=== PATIENT | female | born 1940 | race Caucasian/White ===

== ENCOUNTER → 2023-04-16 11:32 | Outpatient (BNVA) | payer MEDICARE, SELFPAY | PROVIDERS: PCP Nurse Practitioner Family; Visit Provider Internal Medicine | DX: M54.81 Occipital neuralgia (principal) | CPT/HCPCS: 99202 ==

== ENCOUNTER 2023-05-29 10:34 | Outpatient (REF) | payer MEDICARE, SELFPAY ==
--- NOTE | ~2023-05-29 | MR_ITS ---
EXAMINATION: MR CERVICAL SPINE WITHOUT CONTRAST CLINICAL INFORMATION: Cervical spinal canal stenosis, evaluate for anomalous left vertebral artery course COMPARISON: None TECHNIQUE: MRI of the cervical spine was obtained using routine sequences without contrast. FINDINGS: There is levocurvature at the cervicothoracic junction. Normal cervical lordosis. Degenerative changes across the anterior atlantodental interval. The craniocervical junction is intact. Slight retrolisthesis at C5-C6 and slight anterolisthesis at C7-T1. Vertebral body heights are normal without acute compression fracture. No suspicious osseous lesion. Disc desiccation with severe C5-C6 and mild C4-C5 disc height loss. Opposing endplate Schmorl's nodes with type I Modic endplate change at C5-C6. Several perineural root sleeve cysts. There are multilevel degenerative changes with level by level detail as follows: C2-C3: Bilateral facet arthrosis without spinal canal or neural foraminal stenosis. C3-C4: Broad-based paracentral disc protrusion and mild bilateral facet arthrosis without spinal canal or neural foraminal narrowing. C4-C5: Right greater than left uncovertebral joint hypertrophy and bilateral facet arthrosis, severe on the right. No significant spinal canal stenosis, noting suspected impingement upon the right C5 nerve root. Severe right without significant left neural foraminal narrowing. C5-C6: Disc osteophyte complex and bilateral uncovertebral joint hypertrophy with greater than left facet arthrosis. Mild to moderate spinal canal stenosis and severe right without left neural foraminal narrowing. C6-C7: Right greater than left facet arthrosis. No spinal canal or neural foraminal stenosis. C7-T1: Uncovered posterior disc material. Osseous fusion across hypertrophic right facet arthrosis. No spinal canal or left neural foraminal narrowing. Moderate to severe right neural foraminal stenosis with impingement upon the exiting right C8 nerve root. The cervical spinal cord is normal in signal and morphology. No epidural fluid collection, mass, or hematoma. No significant abnormalities of the paraspinal musculature. The flow voids of the major cervical vessels are maintained, with normal course of the imaged cervical left vertebral artery, as clinically queried. Mild bilateral intraglandular submandibular sialectasis. The visualized intracranial structures are normal. Heterogeneous multinodular thyroid gland with heterogeneous T1 and T2 hyperintense nodules in the left lobe measuring 2.3 cm and 2.2 cm, for which further evaluation with thyroid ultrasound is advised. MR/MR cervical spine wo con IMPRESSION: 1. Multilevel cervical spondylosis as described above with mild to moderate spinal canal stenosis at C5-C6. No cord compression or cord signal abnormality. Right-sided uncovertebral joint hypertrophy at C4-C5 impinges upon the right C5 nerve root. Multilevel neural foraminal stenosis, worst and severe on the right at C4-C5 and C5-C6. Moderate to severe right C7-T1 neural foraminal stenosis with impingement upon the exiting right C8 nerve root. 2. Multinodular thyroid gland with heterogeneous nodules in the left lobe measuring up to 2.3 cm, for which further evaluation with thyroid ultrasound is advised. 3. The flow voids of the major cervical vessels are maintained, with normal course of the imaged cervical left vertebral artery, as clinically queried.
== END 2023-05-29 10:35 | disposition home or self-care (01) ==
LOC: HO.MRI 10:34
PROVIDERS: PCP Nurse Practitioner Family; Visit Provider Internal Medicine
DX: M48.02 Spinal stenosis, cervical region (principal)
CPT/HCPCS: 72141

== ENCOUNTER 2023-06-06 09:22 | Day surgery (SDC) | payer MEDICARE, SELFPAY ==
--- NOTE | ~2023-06-06 | FL_ITS ---
EXAMINATION: XR FLUOROSCOPY WITH IMAGES CLINICAL INFORMATION: Third occipital nerve SPRINT, left. COMPARISON: Cervical spine MRI May 2023 TECHNIQUE: Fluoroscopy Supervised By: Dr. Neo Fernandez. Fluoroscopy Time: 0.6 minutes. Cumulative Dose: 4.52 mGy. DAP: 0.450 Gycm2. Images: 5. FINDINGS: Initial images demonstrates posterior needle projecting over the posterior elements at C2-C3. Later images demonstrate a left-sided probe projecting over the proximal left lateral cervical spine. Increased density projecting over the cervical spine at the C2-C3 disc space level on the lateral views, uncertain etiology. FL/FL guidance in OR IMPRESSION: Fluoroscopy guidance for a management procedure.
[2023-06-06 09:46] VITALS: BMI 25.2
[2023-06-06 10:47] VITALS: BP 151/73; PULSE 82; RESP 16; TEMP 36.4; O2SAT 97
--- NOTE | 2023-06-06 11:59 | MHC.SHP ---
Pre-Procedural Eval Section A Date of Service: 06/06/23 The patient is an INPATIENT: No Changes since office visit: Yes Patient answered all questions The History & Physical has been completed within 30 days and I have reviewed it.: No Section B Chief Complaint: Occipital neuralgia Relevant Family History (Specify if Yes): Yes Relevant Social History: Other (specify) Present Medications: see Short Stay Collaborative assessment Medical History: No relevant PMH History of Previous Operations: No relevant previous surgery Allergies: Allergies Allergy/AdvReac Type Severity Reaction Status Date / Time codeine AdvReac Severe Nausea Verified 04/16/23 11:38 Review of Systems Sugical H&P ROS: Negative: Constitution, Cardiovascular and Respiratory Exam Surgical H&P Exam: Normal: HEENT, Normal: Heart and Normal: Lungs Plan Diagnosis/Plan: Unchanged I have reviewed the history and physical and performed a pertinent physical examination on my patient. No changes have occurred unless specified. Proceed with left 3rd occipital nerve temporary stimulator placement. Time Spent With Patient Time: Total time managing care of this patient today ____ minutes.
[2023-06-06 12:00] VITALS: BP 151/68; PULSE 80; RESP 20; TEMP 36.6; O2SAT 97
--- NOTE | 2023-06-06 12:03 | PM.OP ---
Brief Operative Note Date of Service: 06/06/23 Pre-op diagnosis: Occipital neuralgia Post-op diagnosis: same Procedure: Temporary 3rd occipital nerve stimulator placement Implants: Sprint temporary PNS system Surgeon: Neo Fernandez MD Anesthesia: local Was an Area Forester used for this Procedure?: No Estimated blood loss (mL): 3 Pathology: none sent Condition: stable Disposition: same day
--- NOTE | 2023-06-06 12:06 | W.PM.OPN ---
Operative Note Operative Note Date of Service: 06/06/23 Narrative: Cervical Medial Branch Nerve Stimulation Lead Placement, SPR (Sprint) System, Left C2/3, Third Occipital Nerve ? After the risks, benefits and alternatives were discussed with the patient and informed consent was obtained, patient was placed in the prone position and padded to foster comfort. The skin overlying the cervical spine was prepped and draped in sterile fashion. Fluoroscopy was used to identify the spinous process and lamina over the C2/3 articular pillar. After identifying and marking the intended target along the course of the medial branch nerve, the skin around the planned entry point and the subcutaneous tissues were injected with lidocaine 1%. An introducer needle and stimulating probe were assembled, inserted and advanced along the intended course of the medial branch nerve, taking care to maintain the proper depth of insertion as the introducer was advanced under fluoroscopic guidance. The introducer needle was delivered to a location in proximity to the nerve. Multiple stimulation parameters were used to deliver stimulation to the target medial branch nerve in concert with stimulating at multiple positions around the nerve. Nerve target acquisition was confirmed noting generation of paresthesias in the paravertebral regions corresponding to the level being stimulated. Various electrical parameter combinations were tested, and the lead location was adjusted (physically relocated) until the patient indicated paresthesia/muscle tension overlapping the distribution of the patient?s typical region of pain, including neck and occipital region. The stimulating probe was removed from the introducer and a percutaneous lead was guided through the needle and delivered to a location in similar proximity to the nerve. Final location was verified with electrical stimulation and documented with fluoroscopy. Upon the first placement, the lead was displaced during introducer removal. So the procedure was repeated as before, and appropriate lead deployment was re-attempted successfully. The exposed end of the percutaneous lead was attached to an external stimulator unit. Various electrical parameter combinations were again tested until the patient indicated paresthesia or muscle tension overlapping the distribution of the patient?s typical region of pain. Fluoroscopy was used to document the location of the percutaneous lead in the deployed position. After confirming that lead impedance was in the normal range, the external unit was detached, the needle was removed, and the lead was anchored at the skin. The lead was threaded into the connector block and electrical continuity and desired patient response was confirmed. The connector block was attached to the external stimulator unit. The site was covered with a sterile occlusive pressure dressing. The patient was observed for stability of vital signs and comfort. Patient was dischared in stable condition.
== END 2023-06-06 12:30 | disposition home or self-care (01) ==
PROVIDERS: PCP Nurse Practitioner Family; Visit Provider Internal Medicine
PROC: (CPT 64555; principal; 2023-06-06 11:00)
DX: M54.81 Occipital neuralgia (principal); M54.2 Cervicalgia; M48.02 Spinal stenosis, cervical region; G89.29 Other chronic pain; R51.9 Headache, unspecified; I10 Essential (primary) hypertension; H81.13 Benign paroxysmal vertigo, bilateral; Z88.8 Allergy status to other drugs, medicaments and biological substances; Z79.1 Long term (current) use of non-steroidal anti-inflammatories (NSAID); Z79.899 Other long term (current) drug therapy
CPT/HCPCS: 64555; C1778

== ENCOUNTER → 2023-06-06 09:22 | Outpatient (BNV) | payer MEDICARE, SELFPAY | PROVIDERS: PCP Nurse Practitioner Family; Visit Provider Internal Medicine | DX: M54.81 Occipital neuralgia (principal) | CPT/HCPCS: 64555 ==

== ENCOUNTER 2023-06-15 08:26 | Outpatient (AMB) | payer MEDICARE, SELFPAY ==
[2023-06-15 08:33] VITALS: BP 136/66; RESP 14; O2SAT 94; BMI 25.2
--- NOTE | 2023-06-15 08:33 | A.OFFVIS_ITS ---
Intake Vital Signs 06/15/23 08:33 Height 5 ft 3 in Weight 142 lb BMI 25.2 BP 136/66 Blood Pressure Location Lt brachial Respiration 14 Pulse Oximetry (%) 94 Oxygen Delivery Method Room Air Intake Visit Reasons: s/p Left 3rd occipital nerve Sprint Allergies codeine Adverse Reaction (Severe, Verified 06/15/23 08:34) Nausea HPI s/p Left 3rd occipital nerve Sprint HPI Details 82-year-old female presenting today for a status post left 3rd occipital nerve sprint. The patient no significant relief following the procedure yet. She has been experiencing occasional mild right-sided headaches that started after the procedure. Her device setting is currently functional at 49. She endorses an appropriate paresthesia sensation from the device appropriately in the upper neck and occipital region. Past Procedures: 06/06/23: Cervical Medial Branch Nerve Stimulation Lead Placement, SPR (Sprint) System, Left C2/3, Third Occipital Nerve: No relief 1 week out, therapy ongoing [facility], [facility] Medical History (Updated 04/16/23 @ 14:04 by Neo Fernandez MD) Benign paroxysmal vertigo, bilateral Chronic left-sided headache Hypertension Occipital neuralgia Review of Systems Const All systems reviewed & are unremarkable except as noted in HPI and below Physical Exam Vital Signs: Last Vital Signs Resp 14 06/15/23 08:33 BP 136/66 06/15/23 08:33 Pulse Ox 94 06/15/23 08:33 Oxygen Delivery Method Room Air 06/15/23 08:33 BMI result Body Mass Index 25.2 General: Appears afebrile. Alert and oriented. Mood and affect appropriate. Follows and participates in conversation appropriately. Respiratory effort is unlabored. Able to transition from sit to stand unassisted. Ambulates with bilaterally normal heel strike and toe off. Site is clean, dry and intact. Results Reviewed Results Reviewed: 05/29/23: MR CERVICAL SPINE WITHOUT CONTRAST FINDINGS: There is levocurvature at the cervicothoracic junction. Normal cervical lordosis. Degenerative changes across the anterior atlantodental interval. The craniocervical junction is intact. Slight retrolisthesis at C5-C6 and slight anterolisthesis at C7-T1. Vertebral body heights are normal without acute compression fracture. No suspicious osseous lesion. Disc desiccation with severe C5-C6 and mild C4-C5 disc height loss. Opposing endplate Schmorl's nodes with type I Modic endplate change at C5-C6. Several perineural root sleeve cysts. There aremultilevel degenerative changes with level by level detail as follows: C2-C3: Bilateral facet arthrosis without spinal canal or neural foraminal stenosis. C3-C4: Broad-based paracentral disc protrusion and mild bilateral facet arthrosis without spinal canal or neural foraminal narrowing. C4-C5: Right greater than left uncovertebral joint hypertrophy and bilateral facet arthrosis, severe on the right. No significant spinal canal stenosis, noting suspected impingement upon the right C5 nerve root. Severe right without significant left neural foraminal narrowing. C5-C6: Disc osteophyte complex and bilateral uncovertebral joint hypertrophy with greater than left facet arthrosis. Mild to moderate spinal canal stenosis and severe right without left neural foraminal narrowing. C6-C7: Right greater than left facet arthrosis. No spinal canal or neural foraminal stenosis. C7-T1: Uncovered posterior disc material. Osseous fusion across hypertrophic right facet arthrosis. No spinal canal or left neural foraminal narrowing. Moderate to severe right neural foraminal stenosis with impingement upon the exiting right C8 nerve root. The cervical spinal cord is normal in signal and morphology. No epidural fluid collection, mass, or hematoma. No significant abnormalities of the paraspinal musculature. The flow voids of the major cervical vessels are maintained, with normal course of the imaged cervical left vertebral artery, as clinically queried. Mild bilateral intraglandular submandibular sialectasis. The visualized intracranial structures are normal. Heterogeneous multinodular thyroid gland with heterogeneous T1 and T2 hyperintense nodules in the left lobe measuring 2.3 cm and 2.2 cm, for which further evaluation with thyroid ultrasound is advised. IMPRESSION: 1. Multilevel cervical spondylosis as described above with mild to moderate spinal canal stenosis at C5-C6. No cord compression or cord signal abnormality. Right-sided uncovertebral joint hypertrophy at C4-C5 impinges upon the right C5 nerve root. Multilevel neural foraminal stenosis, worst and severe on the right at C4-C5 and C5-C6. Moderate to severe right C7-T1 neural foraminal stenosis with impingement upon the exiting right C8 nerve root. 2. Multinodular thyroid gland with heterogeneous nodules in the left lobe measuring up to 2.3 cm, for which further evaluation with thyroid ultrasound is advised. 3. The flow voids of the major cervical vessels are maintained, with normal course of the imaged cervical left vertebral artery, as clinically queried. Assessment & Plan Assessment & Plan (1) Occipital neuralgia: Code(s): M54.81 - Occipital neuralgia Plan The patient will follow-up in seven weeks for removal of Sprint. Dressing changed in clinic today. Patient expressed good understanding of how to operate the device with appropriate paresthesia coverage. Scribed for Dr. Fernandez by Jeff Basilio, bio medical technician, on 06/15/2023. I, Dr. Fernandez, have personally reviewed and agree with the information entered by the scribe. Coding Level of Care Code Est Pt Level 3 (86175) Diagnoses Occipital neuralgia M54.81
== END 2023-06-15 08:51 | disposition home or self-care (01) ==
PROVIDERS: PCP Nurse Practitioner Family; Visit Provider Internal Medicine
DX: M54.81 Occipital neuralgia (principal)
CPT/HCPCS: 99024

== ENCOUNTER → 2023-06-15 08:26 | Outpatient (BNVA) | payer MEDICARE, SELFPAY | PROVIDERS: PCP Nurse Practitioner Family; Visit Provider Internal Medicine | DX: M54.81 Occipital neuralgia (principal) | CPT/HCPCS: 99212 ==

== ENCOUNTER 2023-08-03 08:41 | Outpatient (AMB) | payer MEDICARE, SELFPAY ==
--- NOTE | 2023-08-03 08:45 | A.OFFVIS_ITS ---
Intake Vital Signs 08/03/23 08:47 Height 5 ft 3 in Weight 150 lb BMI 26.6 BP 186/80 H Blood Pressure Location Lt brachial Position Sitting Respiration 14 Pulse 88 Pulse Source Pulse Oximeter Pulse Oximetry (%) 99 Oxygen Delivery Method Room Air Intake Visit Reasons: Sprint removal Allergies codeine Adverse Reaction (Severe, Verified 08/03/23 08:47) Nausea Medication List - Last Reconciled 08/03/23 by Danyelle Bosch LPN acetaminophen ER (Tylenol Arthritis Pain) 650 mg PO Q12H atorvastatin 40 mg PO DAILY calcium carb and citrate-vitD3 600 mg-12.5 mcg (500 unit) ER tabs PO cholecalciferol (vitamin D3) 50 mcg PO DAILY cyanocobalamin (vitamin B-12) 500 mcg PO DAILY geriatric [id number] 1 tab PO DAILY ibuprofen (Advil) 600 mg PO Q8H PRN [id number] 333-1.7 mg (Airborne (ascorbate sodium)) tabs PO naproxen sodium (Aleve) 220 mg PO BID PRN omeprazole 40 mg PO DAILY pseudoephedrine HCl (Sudafed) 60 mg PO Q4-6H PRN HPI Sprint removal HPI Details 83-year-old female who presents today to the office for a removal of sprint. The patient states that she had no relief from the cervical MB nerve stimulator. She has no neck pain with sideways movements or paresthesia, numbness, or pain in her arms. She has a history of arthritis. She had an occipital nerve block with Depo-Medrol in 2010 with good relief for 2?3 days. She states that a doctor from [place] recommended trying RFA or Botox therapy, but her neurologist deferred the suggestion. The patient is amenable to receive a nerve block today in the office. She is hesitant to proceed with a trial of in implantable nerve stimulation device for occipital neuralgia at this time, but will think about it and let us know. Past Procedures: 06/06/23: Cervical Medial Branch Nerve S timulation Lead Placement, SPR (Sprint) System, Left C2/3, Third Occipital Nerve: No relief. [facility] Medical History (Updated 04/16/23 @ 14:04 by Neo Fernandez MD) Chronic left-sided headache Occipital neuralgia Hypertension Benign paroxysmal vertigo, bilateral Review of Systems Const All systems reviewed & are unremarkable except as noted in HPI and below Physical Exam Vital Signs: Last Vital Signs Pulse 88 08/03/23 08:47 Resp 14 08/03/23 08:47 BP 186/80 H 08/03/23 08:47 Pulse Ox 99 08/03/23 08:47 Oxygen Delivery Method Room Air 08/03/23 08:47 BMI result Body Mass Index 26.6 General: Appears afebrile. Alert and oriented. Mood and affect appropriate. Follows and participates in conversation appropriately. Respiratory effort is unlabored. Able to transition from sit to stand unassisted. Ambulates with bilaterally normal heel strike and toe off. The site was clean, dry, and intact. Office Procedures Nerve Block Details: Left Greater and Lesser Occipital Nerve Block. A physical exam was used to isolate the location of the targeted nerves. These injection sites were prepped with alcohol. Using a sterile technique, a 25 gauge 1.5-inch needle was introduced into each overlying nerve. A total of 3cc equal mix, 4% Lidocaine and 0.5% bupivacaine, was injected around the left greater and lesser occipital nerves in a fan-like motion. Aspirations were negative for blood, CSF, and air prior to injection at all sites. The needle was removed, the skin cleansed and a sterile bandage was applied where needed. The patient tolerated the procedure well and no complications were encountered. Following the procedure the patient's vital signs were stable. He reported resolution of his preprocedure headache. The patient was discharged home in good condition with post-procedural instructions. Time Out: Immediately prior to the procedure, the following was verbally confirmed that there is a signed consent form and that the correct patient, planned procedure, site and side are consistent with documentation and that necessary equipment and/or blood products are available prior to the start of the case. Complications: none EBL: None. CPT: 45901-Mepfncf Occipital (left) 06504 - Lesser Occipital (left ) Procedure code (CPT) selection complete Results Reviewed Results Reviewed: 05/29/23: MR CERVICAL SPINE WITHOUT CONTRAST FINDINGS: There is levocurvature at the cervicothoracic junction. Normal cervical lordosis. Degenerative changes across the anterior atlantodental interval. The craniocervical junction is intact. Slight retrolisthesis at C5-C6 and slight anterolisthesis at C7-T1. Vertebral body heights are normal without acute compression fracture. No suspicious osseous lesion. Disc desiccation with severe C5-C6 and mild C4-C5 disc height loss. Opposing endplate Schmorl's nodes with type I Modic endplate change at C5-C6. Several perineural root sleeve cysts. There are multilevel degenerative changes with level by level detail as follows: C2-C3: Bilateral facet arthrosis without spinal canal or neural foraminal stenosis. C3-C4: Broad-based paracentral disc protrusion and mild bilateral facet arthrosis without spinal canal or neural foraminal narrowing. C4-C5: Right greater than left uncovertebral joint hypertrophy and bilateral facet arthrosis, severe on the right. No significant spinal canal stenosis, noting suspected impingement upon the right C5 nerve root. Severe right without significant left neural foraminal narrowing. C5-C6: Disc osteophyte complex and bilateral uncovertebral joint hypertrophy with greater than left facet arthrosis. Mild to moderate spinal canal stenosis and severe right without left neural foraminal narrowing. C6-C7: Right greater than left facet arthrosis. No spinal canal or neural foraminal stenosis. C7-T1: Uncovered posterior disc material. Osseous fusion across hypertrophic right facet arthrosis. No spinal canal or left neural foraminal narrowing. Moderate to severe right neural foraminal stenosis with impingement upon the exiting right C8 nerve root. The cervical spinal cord is normal in signal and morphology. No epidural fluid collection, mass, or hematoma. No significant abnormalities of the paraspinal musculature. The flow voids of the major cervical vessels are maintained, with normal course of the imaged cervical left vertebral artery, as clinically queried. Mild bilateral intraglandular submandibular sialectasis. The visualized intracranial structures are normal. Heterogeneous multinodular thyroid gland with heterogeneous T1 and T2 hyperintense nodules in the left lobe measuring 2.3 cm and 2.2 cm, for which further evaluation with thyroid ultrasound is advised. IMPRESSION: 1. Multilevel cervical spondylosis as described above with mild to moderate spinal canal stenosis at C5-C6. No cord compression or cord signal abnormality. Right-sided uncovertebral joint hypertrophy at C4-C5 impinges upon the right C5 nerve root. Multilevel neural foraminal stenosis, worst and severe on the right at C4-C5 and C5-C6. Moderate to severe right C7-T1 neural foraminal stenosis with impingement upon the exiting right C8 nerve root. 2. Multinodular thyroid gland with heterogeneous nodules in the left lobe measuring up to 2.3 cm, for which further evaluation with thyroid ultrasound is advised. 3. The flow voids of the major cervical vessels are maintained, with normal course of the imaged cervical left vertebral artery, as clinically queried. Assessment & Plan Assessment & Plan (1) Occipital neuralgia: Code(s): M54.81 - Occipital neuralgia Plan The site was clean, dry, and intact. The sprint device was removed today in the office. Discussed permanent nerve stimulators as a possible treatment option. We discussed starting with the one-week trial of a permanent nerve stimulator placement; if the pain is significantly improved, we will proceed with placement of the permanent device. The patient will think about it and let us know if he wants to proceed with the plan. A device brochure was provided to the patient today in the office. Patient is status post diagnostic Left Greater and Lesser Occipital Nerve Block. Patient tolerated procedure well and was discharged home in stable condition with discharge instructions. All questions were answered. Scribed for Dr. Fernandez by Jeff Basilio, medical office scheduler, on 08/03/2023. I, Dr. Fernandez, have personally reviewed and agree with the information entered by the scribe. Coding Level of Care Code Est Pt Level 3 (21625) Diagnoses Occipital neuralgia M54.81 CPT Codes Nerve Block - CPT: 59721-Avcqehm Occipital ([id number]) Nerve Block - Nerve Block 9: 68740 - Lesser Occipital ([id number])
[2023-08-03 08:47] VITALS: BP 186/80; PULSE 88; RESP 14; O2SAT 99; BMI 26.6
== END 2023-08-03 09:11 | disposition home or self-care (01) ==
PROVIDERS: PCP Nurse Practitioner Family; Visit Provider Internal Medicine
DX: M54.81 Occipital neuralgia (principal)
CPT/HCPCS: 64405; 64450; 99213

== ENCOUNTER → 2023-08-03 08:41 | Outpatient (BNVA) | payer MEDICARE, SELFPAY | PROVIDERS: PCP Nurse Practitioner Family; Visit Provider Internal Medicine | DX: M54.81 Occipital neuralgia (principal) | CPT/HCPCS: 64405; 64450; 99212 ==

== ENCOUNTER 2023-08-31 11:06 | Outpatient (AMB) | payer MEDICARE, SELFPAY ==
--- NOTE | 2023-08-31 11:28 | A.OFFVIS_ITS ---
Intake Vital Signs 08/31/23 11:30 Height 5 ft 3 in Weight 147 lb BMI 26.0 Blood Pressure Location Lt brachial Position Sitting Respiration 14 Pulse 94 Pulse Source Pulse Oximeter Pulse Oximetry (%) 97 Oxygen Delivery Method Room Air Intake Visit Reasons: discuss muscle relaxer/botox/confirmed Allergies codeine Adverse Reaction (Severe, Verified 08/31/23 11:31) Nausea Medication List - Last Reconciled 08/31/23 by Danyelle Bosch LPN acetaminophen ER (Tylenol Arthritis Pain) 650 mg PO Q12H atorvastatin 40 mg PO DAILY calcium carb and citrate-vitD3 600 mg-12.5 mcg (500 unit) ER tabs PO cholecalciferol (vitamin D3) 50 mcg PO DAILY cyanocobalamin (vitamin B-12) 500 mcg PO DAILY geriatric eyzlpnvn-umrr-[id number] 1 tab PO DAILY ibuprofen (Advil) 600 mg PO Q8H PRN [id number] 333-1.7 mg (Airborne (ascorbate sodium)) tabs PO naproxen sodium (Aleve) 220 mg PO BID PRN omeprazole 40 mg PO DAILY pseudoephedrine HCl (Sudafed) 60 mg PO Q4-6H PRN HPI discuss muscle relaxer/botox/confirmed HPI Details 83-year-old female who presents today to the office for a discussion of medication/procedure. The patient reports no relief following the procedure. She states that her symptoms started about 12 years ago. She inquired about the Botox therapy. She also inquired about occipital nerve release surgery that was suggested by her [id number]. She is not taking any neuropathic medications. She discontinued taking gabapentin about 10 years ago as it was not working. Past Procedures: 08/03/23: Left Greater and Lesser Occipi thiago Nerve Block.: No relief. 06/06/23: Cervical Medial Branch Nerve S timulation Lead Placement, SPR (Sprint) System, Left C2/3, Third Occipital Nerve: No relief. [facility] Medical History (Updated 04/16/23 @ 14:04 by Neo Fernandez MD) Chronic left-sided headache Occipital neuralgia Hypertension Benign paroxysmal vertigo, bilateral Review of Systems Const All systems reviewed & are unremarkable except as noted in HPI and below Physical Exam Vital Signs: Last Vital Signs Pulse 94 08/31/23 11:30 Resp 14 08/31/23 11:30 Pulse Ox 97 08/31/23 11:30 Oxygen Delivery Method Room Air 08/31/23 11:30 BMI result Body Mass Index 26.0 General: Appears afebrile. Alert and oriented. Mood and affect appropriate. Follows and participates in conversation appropriately. Respiratory effort is unlabored. Able to transition from sit to stand unassisted. Ambulates with bilaterally normal heel strike and toe off. Results Reviewed Results Reviewed: No imaging is available for review. Assessment & Plan Assessment & Plan (1) Occipital neuralgia: Code(s): M54.81 - Occipital neuralgia Plan We discussed a trial of Botox therapy for splenius muscle spasm and the risks and benefits of potential occipital nerve release surgery, details of potential occipital nerve stimulator placement, and a trial of hydrodissection of the occipital nerves under ultrasound guidance using saline and a dilute local anesthetic solution. The patient agreed with starting with the trial of hydrodissection, so we will plan on doing that in the near future before considering other more invasive or potentially expensive treatment options. Scribed for Dr. Fernandez by Jeff Basilio, medical billing assistant, on 08/31/2023. I, Dr. Fernandez, have personally reviewed and agree with the information entered by the scribe. Coding Level of Care Code Est Pt Level 3 (57388) Diagnoses Occipital neuralgia M54.81
[2023-08-31 11:30] VITALS: PULSE 94; RESP 14; O2SAT 97; BMI 26.0
== END 2023-08-31 11:54 | disposition home or self-care (01) ==
PROVIDERS: PCP Nurse Practitioner Family; Visit Provider Internal Medicine
DX: M54.81 Occipital neuralgia (principal)
CPT/HCPCS: 99213

== ENCOUNTER → 2023-08-31 11:06 | Outpatient (BNVA) | payer MEDICARE, SELFPAY | PROVIDERS: PCP Nurse Practitioner Family; Visit Provider Internal Medicine | DX: M54.81 Occipital neuralgia (principal) | CPT/HCPCS: 99212 ==

== ENCOUNTER 2023-09-17 09:48 | Outpatient (AMB) | payer MEDICARE, SELFPAY ==
[2023-09-17 09:53] VITALS: RESP 12
--- NOTE | 2023-09-17 09:53 | MHC.OFFVIS ---
Intake Vital Signs 09/17/23 09:53 Height 5 ft 3 in Blood Pressure Location Lt brachial Position Sitting Respiration 12 Pulse Source Pulse Oximeter Intake Visit Reasons: hydrodissection occipital nerve/confirmed Allergies codeine Adverse Reaction (Severe, Verified 09/17/23 09:55) Nausea Medication List - Last Reconciled 09/17/23 by Danyelle Bosch LPN acetaminophen ER (Tylenol Arthritis Pain) 650 mg PO Q12H atorvastatin 40 mg PO DAILY calcium carb and citrate-vitD3 600 mg-12.5 mcg (500 unit) ER tabs PO cholecalciferol (vitamin D3) 50 mcg PO DAILY cyanocobalamin (vitamin B-12) 500 mcg PO DAILY geriatric ginrlegx-fypa-wwua 1 tab PO DAILY ibuprofen (Advil) 600 mg PO Q8H PRN [id number] 333-1.7 mg (Airborne (ascorbate sodium)) tabs PO naproxen sodium (Aleve) 220 mg PO BID PRN omeprazole 40 mg PO DAILY pseudoephedrine HCl (Sudafed) 60 mg PO Q4-6H PRN HPI hydrodissection occipital nerve/confirmed HPI Details 83-year-old female who presents today to the office for a hydrodissection occipital nerve block. Denies any recent cough, cold, infection, fever or other significant changes in medical history since last office visit. Past Procedures: 08/03/23: Left Greater and Lesser Occipital Nerve Block.: No relief. 06/06/23: Cervical Medial Branch Nerve Stimulation Lead Placement, SPR (Sprint) System, Left C2/3, Third Occipital Nerve: No relief. [facility] Medical History (Updated 09/18/23 @ 11:45 by Neo Fernandez MD) Chronic left-sided headache Occipital neuralgia Hypertension Benign paroxysmal vertigo, bilateral Review of Systems Const All systems reviewed & are unremarkable except as noted in HPI and below Physical Exam Vital Signs: Last Vital Signs Resp 12 09/17/23 09:53 General: Appears afebrile. Alert and oriented. Mood and affect appropriate. Follows and participates in conversation appropriately. Respiratory effort is unlabored. Able to transition from sit to stand unassisted. Ambulates with bilaterally normal heel strike and toe off. Office Procedures Nerve Block Details: Occipital Nerve Block, Left sided A physical exam was used to isolate the location of the targeted nerves. These injection sites were prepped with alcohol. Using a sterile technique, a 25 gauge 1.5-inch needle was introduced into the occipital area in the distribution of the greater occipital nerve. A large volume of saline was used (14 mL total) mixed with bupivacaine 1 mL 0.5% was injected to achieve hydrodissection in addition to the nerve block. Aspirations were negative for blood, CSF, and air prior to injection at all sites. The needle was removed, the skin cleansed and a sterile bandage was applied where needed. The patient tolerated the procedure well and no complications were encountered. The patient was discharged home in good condition with post-procedural instructions. Time Out: Immediately prior to the procedure, the following was verbally confirmed that there is a signed consent form and that the correct patient, planned procedure, site and side are consistent with documentation and that necessary equipment and/or blood products are available prior to the start of the case. Complications: none EBL: <5 cc. Procedure code (CPT) selection complete Results Reviewed Results Reviewed: No imaging is available for review. Assessment & Plan Assessment & Plan (1) Occipital neuralgia: Code(s): M54.81 - Occipital neuralgia Qualifiers: Laterality: left Qualified Code(s): M54.81 - Occipital neuralgia Plan Patient is status post left occipital nerve block and hydrodissection with large volume dilute local anesthetic solution. Patient tolerated procedure well and was discharged home in stable condition with discharge instructions. All questions were answered. We will follow-up in two weeks via telephone or in clinic to assess response to therapy. A follow-up appointment was made during today's visit. Scribed for Dr. Fernandez by Jeff Basilio medical care manager, on 09/17/2023. I, Dr. Fernandez, have personally reviewed and agree with the information entered by the scribe. Coding Level of Care Code Procedure Only Diagnoses Occipital neuralgia of left side M54.81 Laterality: left
== END 2023-09-17 10:11 | disposition home or self-care (01) ==
PROVIDERS: PCP Nurse Practitioner Family; Visit Provider Internal Medicine
DX: M54.81 Occipital neuralgia (principal)
CPT/HCPCS: 64405

== ENCOUNTER → 2023-09-17 09:48 | Outpatient (BNVA) | payer MEDICARE, SELFPAY | PROVIDERS: PCP Nurse Practitioner Family; Visit Provider Internal Medicine | DX: M54.81 Occipital neuralgia (principal) | CPT/HCPCS: 64405; J0665 ==

== ENCOUNTER 2024-01-04 09:03 | Outpatient (AMB) | payer MEDICARE, SELFPAY ==
[2024-01-04 09:06] VITALS: BP 190/83; PULSE 86; RESP 12; O2SAT 98; BMI 26.0
--- NOTE | 2024-01-04 09:06 | A.OFFVIS_ITS ---
Intake Vital Signs 01/04/24 09:06 Height 5 ft 3 in Weight 147 lb BMI 26.0 BP 190/83 H Blood Pressure Location Lt brachial Position Sitting Respiration 12 Pulse 86 Pulse Source Pulse Oximeter Pulse Oximetry (%) 98 Oxygen Delivery Method Room Air Intake Visit Reasons: Botox denial Allergies codeine Adverse Reaction (Severe, Verified 01/04/24 09:08) Nausea Medication List - Last Reconciled 01/04/24 by Danyelle Bosch LPN acetaminophen ER (Tylenol Arthritis Pain) 650 mg PO Q12H atorvastatin 40 mg PO DAILY calcium carb and citrate-vitD3 600 mg-12.5 mcg (500 unit) ER tabs PO cholecalciferol (vitamin D3) 50 mcg PO DAILY cyanocobalamin (vitamin B-12) 500 mcg PO DAILY cyclobenzaprine 5 mg PO TID PRN geriatric szkrzzaj-vgvk-[id number] 1 tab PO DAILY ibuprofen (Advil) 600 mg PO Q8H PRN [id number] 333-1.7 mg (Airborne (ascorbate sodium)) tabs PO naproxen sodium (Aleve) 220 mg PO BID PRN omeprazole 40 mg PO DAILY pseudoephedrine HCl (Sudafed) 60 mg PO Q4-6H PRN HPI Botox denial HPI Details 83-year-old female presents today to the office for Botox denial. Her prior authorization for Botox therapy was denied by her insurance. She reports worsening of her headaches that start at the base of the head and radiate to the top of the head. She was unable to go to sleep at night. She used ice compression for mild relief. She has been using OTC Advil, Ibuprofen, and Tylenol Extra Strength. She has been taking the medications for the past 10 years. She had no relief from the cervical MB nerve stimulator. She had an occipital nerve block with Depo-Medrol in 2010 with good relief for 2?3 days. Past Procedures: 09/17/23: Occipital Nerve Block, Left si ded: % relief. 08/03/23: Left Greater and Lesser Occipi thiago Nerve Block.: No relief. 06/06/23: Cervical Medial Branch Nerve S timulation Lead Placement, SPR (Sprint) System, Left C2/3, Third Occipital Nerve: No relief. [facility] Medical History (Updated 09/18/23 @ 11:45 by Neo Fernandez MD) Chronic left-sided headache Occipital neuralgia Hypertension Benign paroxysmal vertigo, bilateral Review of Systems Const All systems reviewed & are unremarkable except as noted in HPI and below Physical Exam Vital Signs: Last Vital Signs Pulse 86 01/04/24 09:06 Resp 12 01/04/24 09:06 BP 190/83 H 01/04/24 09:06 Pulse Ox 98 01/04/24 09:06 Oxygen Delivery Method Room Air 01/04/24 09:06 BMI result Body Mass Index 26.0 General: Appears afebrile. Alert and oriented. Mood and affect appropriate. Follows and participates in conversation appropriately. Respiratory effort is unlabored. Able to transition from sit to stand unassisted. Ambulates with bilaterally normal heel strike and toe off. Results Reviewed Results Reviewed: No imaging is available for review. Assessment & Plan Assessment & Plan (1) Occipital neuralgia: Code(s): M54.81 - Occipital neuralgia Qualifiers: Laterality: left Qualified Code(s): M54.81 - Occipital neuralgia Plan Prescription provided for 50 units botulinum toxin injection for trial of chemo denervation of left cervical occipitalis muscle. Patient will procure the medication and bring it with her for administration when she has obtained it. Scribed for Dr. Fernandez by Jeff Basilio, senior medical transcriptionist, on 01/04/2024. I, Dr. Fernandez, have personally reviewed and agree with the information entered by the scribe. Medications: New onabotulinumtoxinA (cosmetic) 50 units IM ONCE 1 ea 0RF Coding Level of Care Code Est Pt Level 3 (22615) Diagnoses Occipital neuralgia of left side M54.81 Laterality: left
== END 2024-01-04 10:02 | disposition home or self-care (01) ==
PROVIDERS: PCP Nurse Practitioner Family; Visit Provider Internal Medicine
DX: M54.81 Occipital neuralgia (principal)
CPT/HCPCS: 99213

== ENCOUNTER → 2024-01-04 09:03 | Outpatient (BNVA) | payer MEDICARE, SELFPAY | PROVIDERS: PCP Nurse Practitioner Family; Visit Provider Internal Medicine | DX: M54.81 Occipital neuralgia (principal) | CPT/HCPCS: 99212 ==